=== PATIENT | female | born 1955 | race African-American/Black ===

== ENCOUNTER → 2019-05-18 | Emergency (ER) | payer OTHER, BC | LOC: JER 11:39 ==

== ENCOUNTER 2024-06-23 13:22 | Inpatient (IN) | payer OTHER, BC ==
[2024-06-23] MEDS ORDERED: oxyCODONE HCL 5 MG TABLET ONE (15:09)
[2024-06-23] MEDS: oxyCODONE HCL 5 MG TABLET PO ONE (15:12)
[2024-06-23 15:17] LABS: BASO % 0.5 % (0-2.0); HEMATOCRIT 31.3 % (32.4-45.2); HEMOGLOBIN 9.7 GM/dL (10.7-15.3); LYMPH % 5.3 % (8-40); MCH 21.7 pg (25.7-33.7); MEAN PLT VOLUME 8.2 fl (7.5-11.1); MONO % 6.9 % (3.8-10.2); NEUT % 87.3 % (42.8-82.8); PLATELET COUNT 280 10^3/uL (134-434); RBC 4.47 M/mm3 (3.60-5.2); RDW 22.5 % (11.6-15.6); WHITE BLOOD COUNT 5.8 K/mm3 (4.0-10.0)
[2024-06-23 15:22] LABS: VENOUS BASE EXCESS -5.1 mmol/L (-2-2); VENOUS O2 SATURATION 80.4 % (70-80); VENOUS PCO2 42.2 mmHg (38-52); VENOUS PH 7.311 (7.310-7.410)
[2024-06-23 15:31] LABS: ANISOCYTOSIS 3+; MACROCYTOSIS 0
[2024-06-23 15:38] LABS: POTASSIUM 5.5 mmol/L (3.5-5.1)
[2024-06-23 15:39] LABS: ALBUMIN 3.6 g/dl (3.4-5.0); CALCIUM 8.8 mg/dL (8.5-10.1)
[2024-06-23 15:40] LABS: BLOOD UREA NITROGEN 29.8 mg/dL (7-18); MAGNESIUM 2.8 mg/dL (1.8-2.4)
[2024-06-23 15:43] LABS: CREATININE 1.4 mg/dL (0.55-1.3)
[2024-06-23 15:44] LABS: BILIRUBIN,TOTAL 0.9 mg/dL (0.2-1); TOT PROT 7.3 g/dl (6.4-8.2)
[2024-06-23 16:04] LABS: N-TERMINAL BNP 46336.8 pg/ml (5-125)
[2024-06-23 17:29] LABS: PH,URINE 5.5 (5.0-8.0); URINE APPEARANCE CLEAR; URINE BILIRUBIN NEGATIVE (NEGATIVE); URINE COLOR YELLOW; URINE GLUCOSE (UA) NEGATIVE (NEGATIVE); URINE KETONE NEGATIVE (NEGATIVE); URINE LEUK ESTERASE NEGATIVE (NEGATIVE); URINE NITRITE NEGATIVE (NEGATIVE); URINE PROTEIN TRACE (NEGATIVE); URINE UROBILINOGEN 0.2 mg/dL (0.2-1.0)
[2024-06-24] MEDS ORDERED: ALPRAZolam 0.25 MG TABLET ONE (00:03)
[2024-06-24] MEDS: ALPRAZolam 0.25 MG TABLET PO PRN (00:06)
[2024-06-24] MEDS ORDERED: ALBUTEROL SO4 HFA INHALER IH PRN (01:11)
[2024-06-24] MEDS ORDERED: hydrALAZINE HCL 25 MG TABLET (FP) PO SCH (01:15)
[2024-06-24] MEDS ORDERED: CEFTRIAXONE 1 GM/50 ML BAG ONE (02:41)
[2024-06-24] MEDS: CEFTRIAXONE 1 GM in DEXTROSE 5%-WATER - 50 ML IVPB SCH (02:50)
[2024-06-24] MEDS: AZITHROMYCIN IVPB 500 MG/250 ML BAG IVPB SCH (04:04)
[2024-06-24] MEDS: ACETAMINOPHEN 325 MG TABLET (FP) PO PRN (04:06)
[2024-06-24] MEDS: REMDESIVIR 200 MG in SODIUM CHLORIDE 250 ML IVPB ONE (04:11)
[2024-06-24 04:33] VITALS: BMI 19.7
[2024-06-24] MEDS: hydrALAZINE HCL 25 MG TABLET (FP) PO ONE (04:58)
[2024-06-24] MEDS: HEPARIN NA (PORCINE) 5,000 UNITS/ML 1ML VIAL SQ SCH (06:04)
[2024-06-24] MEDS: INSULIN ASPART SLIDING SCALE (NOVOLOG) 1 VIAL SQ SCH (07:39)
[2024-06-24] MEDS: SODIUM ZIRCONIUM CYCLOSILICATE (LOKELMA) 5 GM PACKET PO SCH (09:58)
[2024-06-24] MEDS: CARVEDILOL 25 MG TABLET (FP) PO SCH (09:58)
[2024-06-24] MEDS: CLOPIDOGREL BISULFATE 75 MG TABLET (FP) PO SCH (09:58)
[2024-06-24] MEDS: CALCITRIOL 0.25 MCG CAPSULE (FP) PO SCH (09:58)
[2024-06-24] MEDS: TACROLIMUS ANHYDROUS 1 MG CAPSULE PO SCH (09:59)
[2024-06-24] MEDS ORDERED: FUROSEMIDE 20 MG TABLET (FP) PO SCH (10:00)
[2024-06-24] MEDS ORDERED: DEXAMETHASONE 4 MG TABLET (FP) PO SCH (10:00)
[2024-06-24] MEDS: INSULIN (LEVEMIR) 100 UNITS/ML UNITS SQ SCH ×2 (10:32→22:35)
[2024-06-24 11:59] LABS: BASO % 0.4 % (0-2.0); EOS % 0.1 % (0-4.5); HEMATOCRIT 27.3 % (32.4-45.2); HEMOGLOBIN 8.4 GM/dL (10.7-15.3); LYMPH % 8.7 % (8-40); MCH 22.1 pg (25.7-33.7); MCHC 30.6 g/dl (32.0-36.0); MEAN CELL VOLUME 72.1 fl (80-96); MONO % 11.1 % (3.8-10.2); NEUT % 79.7 % (42.8-82.8); PLATELET COUNT 225 10^3/uL (134-434); RBC 3.79 M/mm3 (3.60-5.2); RDW 22.7 % (11.6-15.6)
[2024-06-24] MEDS: ISOSORBIDE DINITRATE 10 MG TABLET PO SCH (12:06)
[2024-06-24 12:39] LABS: MAGNESIUM 2.6 mg/dL (1.8-2.4)
[2024-06-24 12:43] LABS: PHOSPHOROUS 4.3 mg/dL (2.5-4.9)
[2024-06-24 12:56] LABS: CHLORIDE 103 mmol/L (98-107); POTASSIUM 5.7 mmol/L (3.5-5.1); SODIUM 133 mmol/L (136-145)
[2024-06-24 13:03] LABS: CALCIUM 7.8 mg/dL (8.5-10.1)
[2024-06-24 13:04] LABS: ALBUMIN 3.2 g/dl (3.4-5.0); ANION GAP 11 mmol/L (4-13); BLOOD UREA NITROGEN 43.7 mg/dL (7-18); CO2 19 mmol/L (21-32)
[2024-06-24 13:06] LABS: CREATININE 1.9 mg/dL (0.55-1.3); TOT PROT 6.6 g/dl (6.4-8.2)
[2024-06-24 13:07] LABS: BILIRUBIN,TOTAL 0.5 mg/dL (0.2-1); SGOT/AST 127 U/L (15-37); SGPT/ALT 72 U/L (13-61)
[2024-06-24 13:12] LABS: ALK PHOS 163 U/L (45-117); GLUCOSE,RANDOM 516 mg/dL (74-106)
[2024-06-24] MEDS: INSULIN (LEVEMIR) 100 UNITS/ML UNITS SQ ONE (14:59)
[2024-06-24] MEDS: INSULIN (NOVOLOG) ASPART 100 UNITS/ML 10ML VIAL SQ SCH (17:29)
[2024-06-24] MEDS ORDERED: DEXTROSE 50%-WATER 25 GM/50 ML DISP.SYRIN ONE (20:01)
[2024-06-24] MEDS: DEXTROSE 50%-WATER - 25 GM/50 ML VIAL IVPUSH ONE (20:13)
[2024-06-24] MEDS: ATORVASTATIN CA 80 MG TABLET (FP) PO SCH (21:57)
[2024-06-24] MEDS: oxyCODONE HCL 5 MG TABLET PO ONE (22:35)
[2024-06-25] MEDS: DEXTROSE 50%-WATER - 25 GM/50 ML VIAL IVPUSH ONE (03:27)
[2024-06-25] MEDS ORDERED: REMDESIVIR 100 MG in SODIUM CHLORIDE 250 ML IVPB SCH (05:00)
[2024-06-25] MEDS: INSULIN (LEVEMIR) 100 UNITS/ML UNITS SQ SCH ×2 (06:16→09:33)
[2024-06-25 06:18] VITALS: RESP 18
[2024-06-25 07:32] LABS: HEMATOCRIT 27.8 % (32.4-45.2); HEMOGLOBIN 8.6 GM/dL (10.7-15.3); MCH 21.7 pg (25.7-33.7); MCHC 30.9 g/dl (32.0-36.0); MEAN CELL VOLUME 70.3 fl (80-96); PLATELET COUNT 240 10^3/uL (134-434); RBC 3.96 M/mm3 (3.60-5.2); RDW 22.2 % (11.6-15.6)
[2024-06-25 07:51] LABS: POTASSIUM 5.2 mmol/L (3.5-5.1)
[2024-06-25 07:53] LABS: CALCIUM 7.7 mg/dL (8.5-10.1)
[2024-06-25 07:54] LABS: BLOOD UREA NITROGEN 46.4 mg/dL (7-18); MAGNESIUM 2.5 mg/dL (1.8-2.4)
[2024-06-25] MEDS ORDERED: INSULIN (LEVEMIR) 100 UNITS/ML UNITS SQ SCH (07:55)
[2024-06-25 07:57] LABS: CREATININE 1.6 mg/dL (0.55-1.3); PHOSPHOROUS 4.8 mg/dL (2.5-4.9)
[2024-06-25 07:58] LABS: BILIRUBIN,TOTAL 0.5 mg/dL (0.2-1); TOT PROT 6.3 g/dl (6.4-8.2)
[2024-06-25] MEDS ORDERED: CEFTRIAXONE 2 GM in DEXTROSE 5%-WATER 100 ML IVPB SCH (10:00)
[2024-06-25] MEDS: SODIUM ZIRCONIUM CYCLOSILICATE (LOKELMA) 5 GM PACKET PO SCH (10:25)
[2024-06-25] MEDS: cloNIDine-TTS 0.2 MG/24 HOURS PATCH.TDWK TD SCH (10:26)
[2024-06-25] MEDS: REMDESIVIR 100 MG in SODIUM CHLORIDE 250 ML IVPB SCH (10:26)
[2024-06-25] MEDS: ERTAPENEM SODIUM 0.5 GM in SODIUM CHLORIDE 50 ML IVPB SCH (11:59)
[2024-06-25] MEDS: oxyCODONE HCL 5 MG TABLET PO ONE (12:11)
[2024-06-25 20:51] VITALS: PULSE 75
[2024-06-25 20:52] VITALS: BP 156/76
[2024-06-25 22:43] VITALS: TEMP 98.3
== END 2024-06-25 22:43 | disposition short-term general hospital (02) | DRG 177 ==
LOC: JER 13:22 → JERBED 16:29 → J4S 06-24 02:51
PROVIDERS: ADMIT Internal Medicine; ATTEND Internal Medicine
PROC: XW033E5 Introduction of Remdesivir Anti-infective into Peripheral Vein, Percutaneous Approach, New Technology Group 5 (ICD-10-PCS; principal; 2024-06-23)
DX: U07.1 COVID-19 (principal); I50.21 Acute systolic (congestive) heart failure; J18.9 Pneumonia, unspecified organism; I13.2 Hypertensive heart and chronic kidney disease with heart failure and with stage 5 chronic kidney disease, or end stage renal disease; Z94.0 Kidney transplant status; T86.19 Other complication of kidney transplant; I70.1 Atherosclerosis of renal artery; N18.9 Chronic kidney disease, unspecified; Y83.9 Surgical procedure, unspecified as the cause of abnormal reaction of the patient, or of later complication, without mention of misadventure at the time of the procedure; I25.10 Atherosclerotic heart disease of native coronary artery without angina pectoris; Z95.5 Presence of coronary angioplasty implant and graft
CPT/HCPCS: 0241U-QW; 36415; 71045-TC-FY; 76705-TC; 80053; 81003; 82010; 82607; 82803; 82962; 83735; 83880; 84100; 84132; 84207; 84252; 84436; 84443; 84484; 85025; 85027; 87086; 87186; 93005; 93010; 93971-TC; 99285-25; J0248; J1644

== ENCOUNTER 2024-07-29 12:07 | Inpatient (IN) | payer OTHER, BC ==
[2024-07-29] MEDS ORDERED: FUROSEMIDE 40 MG/4 ML INJECTABLE VIAL ONE (13:50)
[2024-07-29] MEDS ORDERED: ALPRAZolam 0.25 MG TABLET ONE (14:03)
[2024-07-29] MEDS: ALPRAZolam 1 MG TABLET PO STA (14:28)
[2024-07-29] MEDS: FUROSEMIDE 40 MG/4 ML INJECTABLE VIAL IVPUSH ONE (14:28)
[2024-07-29] MEDS: ACETAMINOPHEN 1000 MG/100 ML BAG IVPB ONE (14:30)
[2024-07-29] MEDS ORDERED: ACETAMINOPHEN INJECTION 100 ML ONE (14:44)
[2024-07-29 14:45] LABS: HEMATOCRIT 34.3 % (32.4-45.2); HEMOGLOBIN 10.6 GM/dL (10.7-15.3); MCH 24.2 pg (25.7-33.7); MEAN PLT VOLUME 8.1 fl (7.5-11.1); PLATELET COUNT 215 10^3/uL (134-434); RBC 4.41 M/mm3 (3.60-5.2); RDW 24.9 % (11.6-15.6); WHITE BLOOD COUNT 3.8 K/mm3 (4.0-10.0)
[2024-07-29 15:02] LABS: POTASSIUM 4.6 mmol/L (3.5-5.1)
[2024-07-29 15:04] LABS: CALCIUM 7.7 mg/dL (8.5-10.1)
[2024-07-29 15:05] LABS: ALBUMIN 3.1 g/dl (3.4-5.0); BLOOD UREA NITROGEN 53.1 mg/dL (7-18); MAGNESIUM 1.9 mg/dL (1.8-2.4)
[2024-07-29 15:08] LABS: CREATININE 2.2 mg/dL (0.55-1.3); INR 1.04 (0.83-1.09); PHOSPHOROUS 3.1 mg/dL (2.5-4.9); PROTHROMBIN TIME (PATIENT) 11.7 SEC (9.7-13.0)
[2024-07-29 15:09] LABS: BILIRUBIN,TOTAL 0.6 mg/dL (0.2-1)
[2024-07-29 15:10] LABS: TOT PROT 6.2 g/dl (6.4-8.2)
[2024-07-29 15:11] LABS: ACTIVATED PTT 28.3 SECONDS (25.2-36.5)
[2024-07-29 15:32] LABS: N-TERMINAL BNP 41544.2 pg/ml (5-125)
[2024-07-29] MEDS ORDERED: oxyCODONE HCL 5 MG TABLET ONE (16:54)
[2024-07-29] MEDS: oxyCODONE HCL 5 MG TABLET PO ONE (16:59)
[2024-07-29 17:06] LABS: POTASSIUM 3.6 mmol/L (3.5-5.1)
[2024-07-29 17:07] LABS: CALCIUM 7.6 mg/dL (8.5-10.1)
[2024-07-29 17:08] LABS: BLOOD UREA NITROGEN 53.7 mg/dL (7-18)
[2024-07-29 17:11] LABS: CREATININE 2.2 mg/dL (0.55-1.3)
[2024-07-29] MEDS ORDERED: ALBUTEROL SO4 HFA INHALER IH PRN (18:40)
[2024-07-29] MEDS ORDERED: TACROLIMUS ANHYDROUS 1 MG CAPSULE PO SCH (22:00)
[2024-07-29] MEDS: INSULIN ASPART SLIDING SCALE (NOVOLOG) 1 VIAL SQ SCH (22:00)
[2024-07-29] MEDS: ATORVASTATIN CA 80 MG TABLET (FP) PO SCH (22:17)
[2024-07-29] MEDS: CARVEDILOL 25 MG TABLET (FP) PO SCH (22:17)
[2024-07-29] MEDS: TACROLIMUS ANHYDROUS 2 MG, TACROLIMUS ANHYDROUS 0.5 MG PO SCH (22:17)
[2024-07-29] MEDS: SENNOSIDES 8.6MG TABLET (FP) PO SCH (22:17)
[2024-07-29] MEDS: hydrALAZINE HCL 50 MG TABLET (FP) PO SCH (22:17)
[2024-07-29] MEDS: INSULIN (LEVEMIR) 100 UNITS/ML UNITS SQ SCH (22:18)
[2024-07-29] MEDS: ALPRAZolam 0.25 MG TABLET PO PRN (22:18)
[2024-07-29] MEDS: HEPARIN NA (PORCINE) 5,000 UNITS/ML 1ML VIAL SQ SCH (22:20)
[2024-07-29] MEDS: MYCOPHENOLATE MOFETIL 500 MG TABLET PO SCH (22:48)
[2024-07-30 07:50] LABS: BASO % 0.6 % (0-2.0); EOS % 0.4 % (0-4.5); HEMATOCRIT 32.9 % (32.4-45.2); HEMOGLOBIN 10.3 GM/dL (10.7-15.3); LYMPH % 18.3 % (8-40); MCH 24.3 pg (25.7-33.7); MCHC 31.2 g/dl (32.0-36.0); MEAN CELL VOLUME 77.9 fl (80-96); MEAN PLT VOLUME 7.2 fl (7.5-11.1); MONO % 10.7 % (3.8-10.2); PLATELET COUNT 199 10^3/uL (134-434); RBC 4.23 M/mm3 (3.60-5.2); RDW 24.6 % (11.6-15.6); WHITE BLOOD COUNT 3.2 K/mm3 (4.0-10.0)
[2024-07-30 08:09] LABS: POTASSIUM 3.4 mmol/L (3.5-5.1)
[2024-07-30 08:15] LABS: BLOOD UREA NITROGEN 53.4 mg/dL (7-18); CALCIUM 7.6 mg/dL (8.5-10.1)
[2024-07-30 08:19] LABS: CREATININE 2.1 mg/dL (0.55-1.3)
[2024-07-30] MEDS: predniSONE 5 MG TABLET (UD) PO SCH (10:20)
[2024-07-30] MEDS: CLOPIDOGREL BISULFATE 75 MG TABLET (FP) PO SCH (10:21)
[2024-07-30] MEDS: CALCITRIOL 0.25 MCG CAPSULE (FP) PO SCH (10:21)
[2024-07-30] MEDS: PANTOPRAZOLE 40 MG TABLET PO SCH (10:21)
[2024-07-30] MEDS: NIFEdipine E.R. 30 MG TABLET PO SCH (10:21)
[2024-07-30] MEDS: ASPIRIN COATED 81 MG TABLET.EC PO SCH (10:21)
[2024-07-30] MEDS: POLYETHYLENE GLYCOL (HEALTHYLAX) 3350 17 GM PACKET PO SCH (10:27)
[2024-07-30] MEDS: FUROSEMIDE 40 MG/4 ML INJECTABLE VIAL IVPUSH SCH (10:27)
[2024-07-30] MEDS: ISOSORBIDE DINITRATE 20 MG TABLET PO SCH (10:29)
[2024-07-30] MEDS: cloNIDine-TTS 0.2 MG/24 HOURS PATCH.TDWK TD SCH (10:30)
[2024-07-30] MEDS: oxyCODONE HCL 5 MG TABLET PO ONE (10:41)
[2024-07-30] MEDS: POTASSIUM CHLORIDE ORAL LIQUID 20 MEQ/15 ML PO ONE (11:12)
[2024-07-30] MEDS: POTASSIUM CHLORIDE TABS 20 MEQ TABLET.ER (FP) PO SCH (12:13)
[2024-07-30] MEDS ORDERED: POTASSIUM CHLORIDE ORAL LIQUID 20 MEQ/15 ML PO ONE (18:00)
[2024-07-31] MEDS: ALPRAZolam 0.25 MG TABLET PO ONE (03:54)
[2024-07-31 07:32] LABS: BASO % 0.5 % (0-2.0); EOS % 0.4 % (0-4.5); HEMATOCRIT 31.2 % (32.4-45.2); HEMOGLOBIN 9.7 GM/dL (10.7-15.3); LYMPH % 17.7 % (8-40); MCH 24.4 pg (25.7-33.7); MCHC 31.2 g/dl (32.0-36.0); MEAN CELL VOLUME 78.4 fl (80-96); MEAN PLT VOLUME 7.4 fl (7.5-11.1); MONO % 10.4 % (3.8-10.2); PLATELET COUNT 222 10^3/uL (134-434); RBC 3.98 M/mm3 (3.60-5.2); RDW 24.4 % (11.6-15.6); WHITE BLOOD COUNT 3.3 K/mm3 (4.0-10.0)
[2024-07-31 08:00] LABS: POTASSIUM 4.1 mmol/L (3.5-5.1)
[2024-07-31 08:09] LABS: ALBUMIN 2.8 g/dl (3.4-5.0); BLOOD UREA NITROGEN 58.7 mg/dL (7-18); CALCIUM 7.7 mg/dL (8.5-10.1)
[2024-07-31 08:10] LABS: MAGNESIUM 1.8 mg/dL (1.8-2.4)
[2024-07-31 08:12] LABS: CREATININE 2.2 mg/dL (0.55-1.3)
[2024-07-31 08:13] LABS: PHOSPHOROUS 3.7 mg/dL (2.5-4.9)
[2024-07-31 08:14] LABS: BILIRUBIN,TOTAL 0.8 mg/dL (0.2-1); TOT PROT 5.5 g/dl (6.4-8.2)
[2024-07-31] MEDS: oxyCODONE HCL 5 MG TABLET PO PRN (10:47)
[2024-07-31] MEDS: ACETAMINOPHEN 325 MG TABLET (FP) PO PRN (10:48)
[2024-07-31] MEDS: FUROSEMIDE 40 MG/4 ML INJECTABLE VIAL IVPUSH SCH (14:18)
[2024-08-01] MEDS: INSULIN (LEVEMIR) 100 UNITS/ML UNITS SQ SCH (10:30)
[2024-08-01 11:49] LABS: BASO % 0.6 % (0-2.0); EOS % 1.1 % (0-4.5); HEMATOCRIT 30.8 % (32.4-45.2); HEMOGLOBIN 9.6 GM/dL (10.7-15.3); LYMPH % 14.8 % (8-40); MCH 24.3 pg (25.7-33.7); MCHC 31.2 g/dl (32.0-36.0); MEAN CELL VOLUME 77.8 fl (80-96); MEAN PLT VOLUME 7.1 fl (7.5-11.1); NEUT % 71.5 % (42.8-82.8); PLATELET COUNT 220 10^3/uL (134-434); RBC 3.96 M/mm3 (3.60-5.2); RDW 24.6 % (11.6-15.6); WHITE BLOOD COUNT 2.9 K/mm3 (4.0-10.0)
[2024-08-01 12:04] LABS: POTASSIUM 3.7 mmol/L (3.5-5.1)
[2024-08-01 12:06] LABS: CALCIUM 7.9 mg/dL (8.5-10.1)
[2024-08-01 12:07] LABS: BLOOD UREA NITROGEN 53.6 mg/dL (7-18); MAGNESIUM 1.7 mg/dL (1.8-2.4)
[2024-08-01 12:10] LABS: CREATININE 1.9 mg/dL (0.55-1.3); PHOSPHOROUS 3.6 mg/dL (2.5-4.9)
[2024-08-01 12:11] LABS: BILIRUBIN,TOTAL 0.3 mg/dL (0.2-1); TOT PROT 5.8 g/dl (6.4-8.2)
[2024-08-01] MEDS: PROCHLORPERAZINE INJECTION 10 MG/2 ML VIAL IVPB PRN (14:14)
[2024-08-01 23:57] VITALS: BMI 25.3
[2024-08-02] MEDS ORDERED: hydrALAZINE HCL 25 MG TABLET (FP) PO SCH (06:11)
[2024-08-02 06:34] VITALS: TEMP 97.9
[2024-08-02] MEDS: ASCORBIC ACID 500 MG TABLET (FP) PO SCH (09:55)
[2024-08-02] MEDS: MULTIVITAMINS THER W-MINERALS COMBO TABLET (FP) PO SCH (09:55)
[2024-08-02] MEDS: ALPRAZolam 0.25 MG TABLET PO PRN (10:15)
[2024-08-02] MEDS ORDERED: FUROSEMIDE 40 MG TABLET (FP) PO SCH (11:30)
[2024-08-02] MEDS: FUROSEMIDE 40 MG TABLET (FP) PO SCH (11:42)
[2024-08-02 11:59] VITALS: BP 121/78; PULSE 75; RESP 20
== END 2024-08-02 12:30 | disposition home or self-care (01) | DRG 291 ==
LOC: JER 12:07 → JERBED 18:39 → J4W 19:53
PROVIDERS: ADMIT Internal Medicine; ATTEND Internal Medicine
DX: I13.0 Hypertensive heart and chronic kidney disease with heart failure and stage 1 through stage 4 chronic kidney disease, or unspecified chronic kidney disease (principal); I50.23 Acute on chronic systolic (congestive) heart failure; Z94.0 Kidney transplant status; I24.89 Other forms of acute ischemic heart disease; J44.9 Chronic obstructive pulmonary disease, unspecified; I70.1 Atherosclerosis of renal artery; N18.9 Chronic kidney disease, unspecified; I25.10 Atherosclerotic heart disease of native coronary artery without angina pectoris; Z95.5 Presence of coronary angioplasty implant and graft; E11.22 Type 2 diabetes mellitus with diabetic chronic kidney disease; E87.70 Fluid overload, unspecified
CPT/HCPCS: 36415; 71045-TC-FY; 76775-TC; 76776-TC; 80048; 80053; 80061; 82550; 82962; 83735; 83880; 84100; 84484; 85025; 85610; 85730; 93005; 93010; 93970-TC; 94761; 97116-GP; 97161-GP; 99285-25; J0131; J1644; J7517

== ENCOUNTER 2025-01-01 16:10 | Inpatient (IN) | payer OTHER, BC ==
[2025-01-01] MEDS: SODIUM CHLORIDE 0.9% 500 ML INFUS.BAG IV ONE ×2 (17:10→18:30)
[2025-01-01 17:31] LABS: HEMATOCRIT 33.4 % (32.4-45.2); HEMOGLOBIN 11.1 G/dL (10.7-15.3); MCHC 33.2 g/dl (32.0-36.0); MEAN CELL VOLUME 81.3 fl (80-96); MEAN PLT VOLUME 9.6 fl (7.5-11.1); PLATELET COUNT 210.8 10^3/uL (134-434); RBC 4.11 10^6/uL (3.60-5.2); RDW 16.2 % (11.6-15.6); WHITE BLOOD COUNT 7.7 10^3/uL (4.0-10.8)
[2025-01-01 17:39] LABS: BILIRUBIN,TOTAL 0.8 mg/dl (0.2-1); CALCIUM 9.1 mg/dl (8.5-10.1); MAGNESIUM 2.9 mg/dL (1.8-2.4); POTASSIUM 4.3 mmol/L (3.5-5.1)
[2025-01-01 17:49] LABS: PLATELET ESTIMATE ADEQUATE
[2025-01-01] MEDS ORDERED: ACETAMINOPHEN INJECTION 100 ML ONE (18:33)
[2025-01-01] MEDS: ACETAMINOPHEN 1000 MG/100 ML BAG IVPB ONE (18:35)
[2025-01-01 19:47] LABS: VENOUS BASE EXCESS -2.2 mmol/L (-2-2); VENOUS O2 SATURATION 74.8 % (70-80); VENOUS PCO2 41.8 mmHg (38-52); VENOUS PH 7.361 (7.310-7.410)
[2025-01-01 20:00] LABS: CALCIUM 8.2 mg/dl (8.5-10.1); CREATININE 3.5 mg/dl (0.6-1.3); POTASSIUM 3.8 mmol/L (3.5-5.1)
[2025-01-01] MEDS ORDERED: INSULIN REGULAR HUMAN 100 UNITS/ML *VIAL ONE ×2 (20:15→22:07)
[2025-01-01] MEDS: INSULIN REGULAR HUMAN 100 UNITS/ML *VIAL IVPUSH ONE ×2 (20:22→22:08)
[2025-01-02] MEDS ORDERED: ACETAMINOPHEN 325 MG TABLET (FP) PO PRN ×2 (00:06→07:29)
[2025-01-02] MEDS ORDERED: DOCUSATE SODIUM 100 MG CAPSULE (FP) PO PRN (00:06)
[2025-01-02] MEDS ORDERED: ALBUTEROL SO4 HFA INHALER IH PRN (00:35)
[2025-01-02] MEDS: diphenhydrAMINE HCL 25 MG CAPSULE (FP) PO ONE (02:08)
[2025-01-02 02:26] LABS: EPI CELLS 7 /uL (0-25.1); HYALINE CASTS 0 /uL (0-3.1); PH,URINE 5.5 (5.0-8.0); URINE APPEARANCE CLEAR; URINE BACTERIA 35 /uL (0-1359); URINE BILIRUBIN NEGATIVE (NEGATIVE); URINE COLOR YELLOW; URINE GLUCOSE (UA) 3+ (NEGATIVE); URINE KETONE NEGATIVE (NEGATIVE); URINE LEUK ESTERASE 1+ (NEGATIVE); URINE NITRITE NEGATIVE (NEGATIVE); URINE PROTEIN NEGATIVE (NEGATIVE); URINE RBC 6 /uL (0-23.9); URINE UROBILINOGEN 0.2 mg/dL (0.2-1.0); URINE WBC 56 /uL (0-25.8)
[2025-01-02] MEDS: INSULIN ASPART SLIDING SCALE (NOVOLOG) 1 VIAL SQ SCH ×2 (03:11→14:25)
[2025-01-02 07:33] LABS: INR 0.89 (0.83-1.09); PROTHROMBIN TIME (PATIENT) 10.2 SEC (9.7-13.0)
[2025-01-02 07:36] LABS: ACTIVATED PTT 23.1 SECONDS (25.2-36.5)
[2025-01-02 07:42] LABS: CALCIUM 8.6 mg/dl (8.5-10.1); CREATININE 3.3 mg/dl (0.6-1.3); MAGNESIUM 2.6 mg/dL (1.8-2.4); PHOSPHOROUS 3.9 (2.5-4.9); POTASSIUM 3.7 mmol/L (3.5-5.1)
[2025-01-02] MEDS ORDERED: ISOSORBIDE DINITRATE 20 MG TABLET PO SCH (08:00)
[2025-01-02] MEDS: hydrALAZINE HCL 50 MG TABLET (FP) PO SCH (08:40)
[2025-01-02] MEDS: ISOSORBIDE DINITRATE 20 MG TABLET PO SCH (08:41)
[2025-01-02 09:28] LABS: BASO % 0.1 % (0-2.0); HEMATOCRIT 33.1 % (32.4-45.2); HEMOGLOBIN 10.6 GM/dL (10.7-15.3); LYMPH % 10.1 % (8-40); MCH 25.9 pg (25.7-33.7); MCHC 32.1 g/dl (32.0-36.0); MEAN CELL VOLUME 80.5 fl (80-96); MEAN PLT VOLUME 8.5 fl (7.5-11.1); MONO % 7.8 % (3.8-10.2); PLATELET COUNT 202 10^3/uL (134-434); RBC 4.12 M/mm3 (3.60-5.2); RDW 15.6 % (11.6-15.6); WHITE BLOOD COUNT 8.9 K/mm3 (4.0-10.0)
[2025-01-02] MEDS: CARVEDILOL 25 MG TABLET (FP) PO SCH (09:40)
[2025-01-02] MEDS: TACROLIMUS ANHYDROUS 1 MG CAPSULE PO SCH (09:40)
[2025-01-02] MEDS: ASPIRIN COATED 81 MG TABLET.EC PO SCH (09:40)
[2025-01-02] MEDS: PANTOPRAZOLE 40 MG TABLET PO SCH (09:40)
[2025-01-02] MEDS: CLOPIDOGREL BISULFATE 75 MG TABLET (FP) PO SCH (09:40)
[2025-01-02] MEDS: ESCITALOPRAM OXALATE 10 MG TABLET PO SCH (09:40)
[2025-01-02] MEDS: predniSONE 5 MG TABLET (UD) PO SCH (09:40)
[2025-01-02] MEDS: CALCITRIOL 0.25 MCG CAPSULE (FP) PO SCH (09:40)
[2025-01-02] MEDS: SENNOSIDES 8.6MG TABLET (FP) PO SCH (09:40)
[2025-01-02] MEDS ORDERED: hydrALAZINE HCL 50 MG TABLET (FP) PO SCH (10:00)
[2025-01-02] MEDS ORDERED: PANTOPRAZOLE SOD 40 MG SUSPENSION PACKET PO SCH (10:00)
[2025-01-02] MEDS: CARVEDILOL 6.25 MG TABLET (FP) PO SCH (10:28)
[2025-01-02] MEDS: LACTATED RINGERS SOLUTION 1,000 ML/1,000 ML INFUS.BAG IV SCH (10:46)
[2025-01-02] MEDS: MYCOPHENOLATE MOFETIL 250 MG CAPSULE PO SCH (10:47)
[2025-01-02] MEDS ORDERED: ALPRAZolam 0.25 MG TABLET PO PRN (12:24)
[2025-01-02] MEDS: TRIMETHOBENZAMIDE HCL 200MG/2ML INJ IM PRN (16:47)
[2025-01-02] MEDS: oxyCODONE HCL 5 MG TABLET PO PRN (16:47)
[2025-01-02] MEDS: ATORVASTATIN CA 80 MG TABLET (FP) PO SCH (21:14)
[2025-01-03] MEDS: LEVALBUTEROL HCL 0.31 MG/3 ML VIAL.NEB IH SCH (09:11)
[2025-01-03] MEDS: IPRATROPIUM BR 0.02% 0.5 MG/2.5 ML VIAL.NEB. NEB SCH (09:11)
[2025-01-03 09:22] LABS: CALCIUM 8.3 mg/dl (8.5-10.1); CREATININE 2.4 mg/dl (0.6-1.3); MAGNESIUM 2.4 mg/dL (1.8-2.4); PHOSPHOROUS 2.9 (2.5-4.9); POTASSIUM 3.7 mmol/L (3.5-5.1)
[2025-01-03 11:39] LABS: BASO % 0.2 % (0-2.0); EOS % 0.1 % (0-4.5); HEMATOCRIT 34.1 % (32.4-45.2); LYMPH % 14.5 % (8-40); MCH 26.2 pg (25.7-33.7); MCHC 32.3 g/dl (32.0-36.0); MEAN CELL VOLUME 81.2 fl (80-96); MEAN PLT VOLUME 8.2 fl (7.5-11.1); MONO % 6.5 % (3.8-10.2); NEUT % 78.7 % (42.8-82.8); PLATELET COUNT 174 10^3/uL (134-434); RDW 15.8 % (11.6-15.6); WHITE BLOOD COUNT 10.1 K/mm3 (4.0-10.0)
[2025-01-03] MEDS: LACTATED RINGERS SOLUTION 1,000 ML/1,000 ML INFUS.BAG IV SCH (15:57)
[2025-01-04] MEDS: INSULIN (LEVEMIR) 100 UNITS/ML UNITS SQ SCH (10:30)
[2025-01-04] MEDS: LIDOCAINE 5% TOPICAL PATCH TP SCH (10:31)
[2025-01-04 10:57] LABS: CALCIUM 8.9 mg/dl (8.5-10.1); CREATININE 2.4 mg/dl (0.6-1.3); MAGNESIUM 2.3 mg/dL (1.8-2.4); PHOSPHOROUS 3.5 (2.5-4.9); POTASSIUM 4.2 mmol/L (3.5-5.1)
[2025-01-04] MEDS: ACETAMINOPHEN 1000 MG/100 ML BAG IVPB PRN (11:42)
[2025-01-04] MEDS: INSULIN ASPART SLIDING SCALE (NOVOLOG) 1 VIAL SQ SCH (12:36)
[2025-01-04 12:46] LABS: BASO % 0.2 % (0-2.0); EOS % 0.4 % (0-4.5); HEMATOCRIT 34.3 % (32.4-45.2); LYMPH % 16.9 % (8-40); MCH 26.5 pg (25.7-33.7); MCHC 31.9 g/dl (32.0-36.0); MEAN PLT VOLUME 8.5 fl (7.5-11.1); MONO % 5.9 % (3.8-10.2); NEUT % 76.6 % (42.8-82.8); PLATELET COUNT 173 10^3/uL (134-434); RBC 4.14 M/mm3 (3.60-5.2); RDW 16.2 % (11.6-15.6); WHITE BLOOD COUNT 8.5 K/mm3 (4.0-10.0)
[2025-01-04] MEDS: LORazepam 2 MG/ML SDV VIAL IVPUSH ONE (13:35)
[2025-01-04] MEDS: LACTATED RINGERS SOLUTION 1,000 ML/1,000 ML INFUS.BAG IV SCH (13:35)
[2025-01-04] MEDS: ONDANSETRON 4 MG/2 ML VIAL IVPUSH ONE (13:35)
[2025-01-04] MEDS: FAMOTIDINE 20 MG/50 ML IVPB 20 MG/50 ML MG IVPB ONE (16:10)
[2025-01-04] MEDS ORDERED: ONDANSETRON 4 MG/2 ML VIAL IVPUSH PRN (17:35)
[2025-01-04] MEDS: LIDOCAINE PATCH REMOVAL MC SCH (21:46)
[2025-01-05 08:17] LABS: CALCIUM 8.9 mg/dl (8.5-10.1); CREATININE 2.2 mg/dl (0.6-1.3); MAGNESIUM 2.4 mg/dL (1.8-2.4); PHOSPHOROUS 3.9 (2.5-4.9); POTASSIUM 4.3 mmol/L (3.5-5.1)
[2025-01-05 09:05] LABS: BASO % 0.2 % (0-2.0); EOS % 0.1 % (0-4.5); HEMATOCRIT 35.4 % (32.4-45.2); LYMPH % 10.6 % (8-40); MCH 25.9 pg (25.7-33.7); MCHC 31.2 g/dl (32.0-36.0); MEAN CELL VOLUME 83.2 fl (80-96); MEAN PLT VOLUME 8.1 fl (7.5-11.1); MONO % 3.7 % (3.8-10.2); NEUT % 85.4 % (42.8-82.8); PLATELET COUNT 155 10^3/uL (134-434); RBC 4.26 M/mm3 (3.60-5.2); RDW 16.2 % (11.6-15.6); WHITE BLOOD COUNT 7.9 K/mm3 (4.0-10.0)
[2025-01-05] MEDS: methylPREDNISolone NA SUCC 40 MG/1 ML VIAL IVPUSH ONE (09:58)
[2025-01-05] MEDS: MYCOPHENOLATE MOFETIL 500 MG TABLET PO SCH (09:58)
[2025-01-05 15:07] VITALS: BMI 17.3
[2025-01-05] MEDS: INSULIN (NOVOLOG) ASPART 100 UNITS/ML 10ML VIAL SQ ONE (15:28)
[2025-01-05 19:09] LABS: GLUCOSE,RANDOM 701 mg/dl (74-106)
[2025-01-05 19:17] VITALS: RESP 16
[2025-01-05 19:33] LABS: ANION GAP 15 mmol/L (4-13); CALCIUM 7.9 mg/dl (8.5-10.1); CHLORIDE 96 mmol/L (98-107); CO2 21 mmol/L (21-32); CREATININE 2.5 mg/dl (0.6-1.3); POTASSIUM 3.7 mmol/L (3.5-5.1); SODIUM 132 mmol/L (136-145)
[2025-01-05] MEDS: traMADol HCL 50 MG TABLET PO PRN (21:36)
[2025-01-05] MEDS: INSULIN (LEVEMIR) 100 UNITS/ML UNITS SQ ONE (22:41)
[2025-01-06 08:01] LABS: CALCIUM 8.5 mg/dl (8.5-10.1); CREATININE 2.3 mg/dl (0.6-1.3); MAGNESIUM 2.3 mg/dL (1.8-2.4); PHOSPHOROUS 3.2 (2.5-4.9); POTASSIUM 3.6 mmol/L (3.5-5.1)
[2025-01-06] MEDS: predniSONE 5 MG TABLET (UD) PO SCH (10:32)
[2025-01-06 10:35] LABS: BASO % 0.2 % (0-2.0); EOS % 0.9 % (0-4.5); HEMATOCRIT 31.9 % (32.4-45.2); LYMPH % 19.8 % (8-40); MCH 25.8 pg (25.7-33.7); MCHC 31.4 g/dl (32.0-36.0); MEAN CELL VOLUME 82.3 fl (80-96); MEAN PLT VOLUME 8.4 fl (7.5-11.1); MONO % 6.8 % (3.8-10.2); NEUT % 72.3 % (42.8-82.8); PLATELET COUNT 155 10^3/uL (134-434); RBC 3.88 M/mm3 (3.60-5.2); RDW 15.9 % (11.6-15.6); WHITE BLOOD COUNT 7.1 K/mm3 (4.0-10.0)
[2025-01-06 11:34] VITALS: BP 130/68; PULSE 60; TEMP 98
[2025-01-07] MEDS ORDERED: cloNIDine-TTS 0.3 MG /24 HRS PATCH.TDWK TD SCH ×2 (00:45→08:00)
== END 2025-01-06 12:16 | disposition home or self-care (01) | DRG 682 ==
LOC: FER 16:10 → FM/S 23:40 → OBSVTOIN 23:43
PROVIDERS: ADMIT Student in an Organized Health Care Education/Training Program
DX: N17.9 Acute kidney failure, unspecified (principal); E43 Unspecified severe protein-calorie malnutrition; E87.1 Hypo-osmolality and hyponatremia; I13.0 Hypertensive heart and chronic kidney disease with heart failure and stage 1 through stage 4 chronic kidney disease, or unspecified chronic kidney disease; Z94.0 Kidney transplant status; Z68.1 Body mass index [BMI] 19.9 or less, adult; I50.42 Chronic combined systolic (congestive) and diastolic (congestive) heart failure; E11.65 Type 2 diabetes mellitus with hyperglycemia; I25.10 Atherosclerotic heart disease of native coronary artery without angina pectoris; N18.9 Chronic kidney disease, unspecified
CPT/HCPCS: 36415; 71045-TC-FY; 74176-TC; 76776-TC; 80048; 80053; 80197; 81003; 82010; 82803; 82962; 83036; 83735; 84100; 85025; 85610; 85730; 87045; 87046; 87798; 93005; 94640; 97116-GP; 97161-GP; 99285-25; G0378; J0131; J7517

== ENCOUNTER 2025-03-01 08:47 | Observation (INO) | payer OTHER, BC ==
[2025-03-01] MEDS ORDERED: FAMOTIDINE 20 MG/50 ML IVPB 20 MG/50 ML MG IVPB ONE (09:29)
[2025-03-01] MEDS ORDERED: ACETAMINOPHEN INJECTION 100 ML ONE (09:29)
[2025-03-01] MEDS ORDERED: MAG HYDROX/AL HYDROX/SIMETH 30 ML UNIT-DOSE CUP ONE (09:31)
[2025-03-01] MEDS: FAMOTIDINE 20 MG/50 ML IVPB 20 MG/50 ML MG IVPB ONE (10:14)
[2025-03-01] MEDS: MAG HYDROX/AL HYDROX/SIMETH 30 ML UNIT-DOSE CUP PO ONE (10:14)
[2025-03-01] MEDS: ACETAMINOPHEN 1000 MG/100 ML BAG IVPB ONE (10:14)
[2025-03-01 10:36] LABS: HEMATOCRIT 37.8 % (34.1-44.9); HEMOGLOBIN 10.6 g/dL (11.2-15.7); MEAN CELL VOLUME 88.7 fl (79.4-94.8); MEAN PLT VOLUME 10.8 fl (9.4-12.3); PLATELET COUNT 161 x10^3/uL (182-369); RDW 21.2 % (12.4-16.6)
[2025-03-01 10:47] LABS: ACTIVATED PTT 29.1 SECONDS (25.2-36.5)
[2025-03-01 10:55] LABS: INR 1.05 (0.83-1.09); PROTHROMBIN TIME (PATIENT) 11.4 SEC (9.7-13.0)
[2025-03-01 10:56] LABS: CHLORIDE 103 mmol/L (98-107); SODIUM 120 mmol/L (136-145)
[2025-03-01 10:58] LABS: ALBUMIN 3.2 g/dl (3.4-5.0); BLOOD UREA NITROGEN 28.6 mg/dL (7-18); CALCIUM 7.9 mg/dL (8.5-10.1); CO2 26 mmol/L (21-32); GLUCOSE,RANDOM 80 mg/dL (74-106); MAGNESIUM 2.7 mg/dL (1.8-2.4)
[2025-03-01 11:02] LABS: CREATININE 1.6 mg/dL (0.55-1.3)
[2025-03-01] MEDS ORDERED: hydrOXYzine PAMOATE 25 MG CAPSULE (FP) PO ONE (12:14)
[2025-03-01] MEDS: hydrOXYzine PAMOATE 25 MG CAPSULE (FP) PO ONE (12:16)
[2025-03-01 12:32] LABS: ANION GAP -9 mmol/L (4-13); POTASSIUM > 10.0 mmol/L (3.5-5.1)
[2025-03-01] MEDS: SODIUM CHLORIDE 1,000 ML IV SCH (12:59)
[2025-03-01 13:33] LABS: POTASSIUM 4.1 mmol/L (3.5-5.1)
[2025-03-01 13:35] LABS: BLOOD UREA NITROGEN 27.7 mg/dL (7-18); CALCIUM 8.8 mg/dL (8.5-10.1)
[2025-03-01 13:39] LABS: CREATININE 1.6 mg/dL (0.55-1.3)
[2025-03-01 13:40] LABS: BILIRUBIN,TOTAL 0.8 mg/dL (0.2-1); TOT PROT 7.1 g/dl (6.4-8.2)
[2025-03-01 13:48] LABS: ALBUMIN 3.9 g/dl (3.4-5.0)
[2025-03-01] MEDS ORDERED: MORPHINE SULFATE 2 MG/ML SYRINGE ONE (14:22)
[2025-03-01] MEDS: morphine CARPU-JECT 2 MG/1 ML DISP.SYRIN IVPUSH ONE (14:30)
[2025-03-01] MEDS ORDERED: ALBUTEROL SO4 HFA INHALER IH PRN (15:58)
[2025-03-01 16:16] VITALS: BMI 20.9
[2025-03-01] MEDS: LIDOCAINE 5% TOPICAL PATCH TP SCH (18:29)
[2025-03-01] MEDS: ISOSORBIDE DINITRATE 20 MG TABLET PO SCH (20:07)
[2025-03-01] MEDS: hydrALAZINE HCL 50 MG TABLET (FP) PO SCH (21:39)
[2025-03-01] MEDS: CARVEDILOL 12.5 MG TABLET (FP) PO SCH (21:41)
[2025-03-01] MEDS: ATORVASTATIN CA 80 MG TABLET (FP) PO SCH (21:41)
[2025-03-01] MEDS: FUROSEMIDE 40 MG TABLET (FP) PO SCH (21:41)
[2025-03-01] MEDS: MYCOPHENOLATE MOFETIL 250 MG CAPSULE PO SCH (21:43)
[2025-03-01] MEDS: HEPARIN NA (PORCINE) 5,000 UNITS/ML 1ML VIAL SQ SCH (21:43)
[2025-03-01] MEDS: LIDOCAINE PATCH REMOVAL MC SCH (21:43)
[2025-03-01] MEDS: INSULIN (NOVOLOG) ASPART 100 UNITS/ML 10ML VIAL SQ SCH (21:44)
[2025-03-01] MEDS: TACROLIMUS ANHYDROUS 1 MG CAPSULE PO SCH (21:44)
[2025-03-02] MEDS: EMPAGLIFLOZIN (JARDIANCE) 10 MG TABLET PO SCH (06:25)
[2025-03-02 07:20] LABS: ABSOLUTE IMMATURE GRANULOCYTES 0.05 x10^3/uL (0.0-0.031); BASOPHILS # 0.01 x10^3/uL (0.01-0.08); EOSINOPHIL % 0.6 % (0.7-5.8); EOSINOPHILS # 0.03 x10^3/uL (0.04-0.36); HEMATOCRIT 34.5 % (34.1-44.9); HEMOGLOBIN 10.4 g/dL (11.2-15.7); MCHC 30.1 g/dl (32.2-35.5); MEAN CELL VOLUME 81.9 fl (79.4-94.8); MEAN PLT VOLUME 11.1 fl (9.4-12.3); MONOCYTE # 0.42 x10^3/uL (0.24-0.86); MONOCYTE % 8.3 % (4.7-12.5); PLATELET COUNT 184 x10^3/uL (182-369); RDW 16.5 % (12.4-16.6)
[2025-03-02] MEDS: ACETAMINOPHEN 1000 MG/100 ML BAG IVPB PRN (07:31)
[2025-03-02 07:48] LABS: POTASSIUM 3.5 mmol/L (3.5-5.1)
[2025-03-02 08:00] LABS: BLOOD UREA NITROGEN 23.4 mg/dL (7-18); CALCIUM 8.4 mg/dL (8.5-10.1); MAGNESIUM 2.1 mg/dL (1.8-2.4)
[2025-03-02 08:01] LABS: ALBUMIN 3.4 g/dl (3.4-5.0)
[2025-03-02 08:03] LABS: CREATININE 1.6 mg/dL (0.55-1.3)
[2025-03-02 08:04] LABS: BILIRUBIN,TOTAL 0.7 mg/dL (0.2-1); PHOSPHOROUS 2.3 mg/dL (2.5-4.9)
[2025-03-02 08:05] LABS: TOT PROT 6.3 g/dl (6.4-8.2)
[2025-03-02] MEDS: TRIMETHOBENZAMIDE HCL 200MG/2ML INJ IM ONE (09:49)
[2025-03-02] MEDS: PANTOPRAZOLE SOD 40 MG SUSPENSION PACKET PO SCH (09:49)
[2025-03-02] MEDS: ASPIRIN 81 MG CHEWABLE TABLETS PO SCH (09:49)
[2025-03-02] MEDS: CALCITRIOL 0.25 MCG CAPSULE (FP) PO SCH (09:49)
[2025-03-02] MEDS: predniSONE 5 MG TABLET (UD) PO SCH (09:50)
[2025-03-02] MEDS ORDERED: hydrALAZINE HCL 50 MG TABLET (FP) PO SCH (10:00)
[2025-03-02] MEDS: CycloBENZAprine HCL 5 MG TABLET PO ONE (11:46)
[2025-03-02 12:57] VITALS: BP 143/63; PULSE 65; RESP 16; TEMP 98.4
== END 2025-03-02 12:51 | disposition home or self-care (01) ==
LOC: JER 08:47 → JERBED 13:59 → J4W 15:35
PROVIDERS: ADMIT Student in an Organized Health Care Education/Training Program; ATTEND Internal Medicine
PROC: 3E033NZ Introduction of Analgesics, Hypnotics, Sedatives into Peripheral Vein, Percutaneous Approach (ICD-10-PCS; principal; 2025-03-01)
PROC: 3E023GC Introduction of Other Therapeutic Substance into Muscle, Percutaneous Approach (ICD-10-PCS; 2025-03-01)
PROC: 3E0337Z Introduction of Electrolytic and Water Balance Substance into Peripheral Vein, Percutaneous Approach (ICD-10-PCS; 2025-03-01)
PROC: 3E023GC Introduction of Other Therapeutic Substance into Muscle, Percutaneous Approach (ICD-10-PCS; 2025-03-01)
DX: R07.9 Chest pain, unspecified (principal); I25.2 Old myocardial infarction; R01.1 Cardiac murmur, unspecified; I50.23 Acute on chronic systolic (congestive) heart failure; M25.512 Pain in left shoulder; J44.9 Chronic obstructive pulmonary disease, unspecified; I10 Essential (primary) hypertension; E11.9 Type 2 diabetes mellitus without complications; I11.9 Hypertensive heart disease without heart failure; Z94.0 Kidney transplant status; K21.9 Gastro-esophageal reflux disease without esophagitis; Z95.5 Presence of coronary angioplasty implant and graft
CPT/HCPCS: 0241U-QW; 36415; 71045-TC-FY; 74176-TC; 80053; 82550; 82553; 82962; 83690; 83735; 84100; 84484; 85025; 85027; 85610; 85730; 93005; 93010; 96361; 96372; 96374; 96375; 96376; 99285-25; G0378; J0131; J1644; J7517

== ENCOUNTER 2025-07-28 14:11 | Inpatient (IN) | payer OTHER, BC ==
[2025-07-28] MEDS ORDERED: ONDANSETRON 4 MG/2 ML VIAL ONE (15:53)
[2025-07-28] MEDS ORDERED: MORPHINE SULFATE 2 MG/ML SYRINGE ONE ×2 (15:53→20:03)
[2025-07-28] MEDS: ONDANSETRON 4 MG/2 ML VIAL IVPUSH ONE (15:54)
[2025-07-28] MEDS: morphine CARPU-JECT 2 MG/1 ML DISP.SYRIN IVPUSH ONE ×2 (15:55→20:05)
[2025-07-28 16:16] LABS: ABSOLUTE IMMATURE GRANULOCYTES 0.02 x10^3/uL (0.0-0.031); BASOPHILS # 0.00 x10^3/uL (0.01-0.08); EOSINOPHIL % 0.2 % (0.7-5.8); EOSINOPHILS # 0.01 x10^3/uL (0.04-0.36); MCHC 31.0 g/dl (32.2-35.5); MEAN CELL VOLUME 79.8 fl (79.4-94.8); MEAN PLT VOLUME 10.5 fl (9.4-12.3); MONOCYTE # 0.45 x10^3/uL (0.24-0.86); MONOCYTE % 7.4 % (4.7-12.5); RDW 16.6 % (12.4-16.6)
[2025-07-28 16:43] LABS: GLUCOSE,RANDOM 128 mg/dL (74-106); TOT PROT 7.9 g/dl (6.4-8.2)
[2025-07-28 16:45] LABS: CO2 24 mmol/L (21-32)
[2025-07-28 16:46] LABS: ALK PHOS 51 U/L (40-150)
[2025-07-28 16:49] LABS: SGOT/AST 31 U/L (5-34)
[2025-07-28 16:50] LABS: CREATININE 2.00 mg/dL (0.55-1.3); SGPT/ALT < 6 U/L (0-55)
[2025-07-28 17:14] LABS: HIV INTERPRETATION NEGATIVE (NEGATIVE)
[2025-07-28 17:24] LABS: HCV DIAGNOSTIC IN-HOUSE W/RFLX REACTIVE (NONREACTIVE)
[2025-07-28] MEDS: ACETAMINOPHEN 1000 MG/100 ML BAG IVPB ONE (18:48)
[2025-07-28] MEDS: SODIUM CHLORIDE 1,000 ML IV STA (18:58)
[2025-07-28] MEDS: LACTATED RINGERS SOLUTION 1,000 ML IV SCH (22:20)
[2025-07-28] MEDS ORDERED: ACETAMINOPHEN 1000 MG/100 ML BAG IVPB PRN (22:43)
[2025-07-28] MEDS ORDERED: TACROLIMUS 0.5 MG CAPSULE PO SCH (22:55)
[2025-07-28] MEDS: TACROLIMUS ANHYDROUS 1 MG CAPSULE PO SCH (23:15)
[2025-07-29] MEDS: ONDANSETRON 4 MG/2 ML VIAL IVPUSH PRN
[2025-07-29] MEDS: MYCOPHENOLATE MOFETIL 250 MG CAPSULE PO SCH
[2025-07-29] MEDS: ACETAMINOPHEN 1000 MG/100 ML BAG IVPB PRN (05:19)
[2025-07-29] MEDS: hydrALAZINE HCL 50 MG TABLET (FP) PO SCH (06:31)
[2025-07-29] MEDS: HEPARIN NA (PORCINE) 5,000 UNITS/ML 1ML VIAL SQ SCH (06:31)
[2025-07-29] MEDS: diphenhydrAMINE HCL 25 MG CAPSULE (FP) PO ONE ×2 (06:32→19:54)
[2025-07-29 07:42] LABS: ABSOLUTE IMMATURE GRANULOCYTES 0.02 x10^3/uL (0.0-0.031); BASOPHILS # 0.01 x10^3/uL (0.01-0.08); EOSINOPHIL % 0.4 % (0.7-5.8); EOSINOPHILS # 0.02 x10^3/uL (0.04-0.36); MCHC 30.5 g/dl (32.2-35.5); MEAN CELL VOLUME 81.2 fl (79.4-94.8); MEAN PLT VOLUME 10.5 fl (9.4-12.3); MONOCYTE # 0.36 x10^3/uL (0.24-0.86); MONOCYTE % 7.2 % (4.7-12.5); RDW 16.6 % (12.4-16.6)
[2025-07-29 08:55] LABS: GLUCOSE,RANDOM 73 mg/dL (74-106); TOT PROT 6.7 g/dl (6.4-8.2)
[2025-07-29 08:56] LABS: CO2 18 mmol/L (21-32)
[2025-07-29 08:58] LABS: ALK PHOS 46 U/L (40-150)
[2025-07-29 09:01] LABS: CREATININE 1.76 mg/dL (0.55-1.3); SGOT/AST 19 U/L (5-34); SGPT/ALT < 6 U/L (0-55)
[2025-07-29] MEDS: ASPIRIN 81 MG CHEWABLE TABLETS PO SCH (09:40)
[2025-07-29] MEDS: CARVEDILOL 25 MG TABLET (FP) PO SCH (09:40)
[2025-07-29] MEDS: PANTOPRAZOLE SOD 40 MG SUSPENSION PACKET PO SCH (09:41)
[2025-07-29] MEDS: ISOSORBIDE DINITRATE 20 MG TABLET PO SCH (09:42)
[2025-07-29] MEDS: TACROLIMUS ANHYDROUS 1 MG CAPSULE PO SCH (09:44)
[2025-07-29] MEDS: POLYETHYLENE GLYCOL (HEALTHYLAX) 3350 17 GM PACKET PO SCH (10:55)
[2025-07-29] MEDS: MAGNESIUM 2GM/50ML STERILE WATER IVPB IVPB ONE (10:55)
[2025-07-29] MEDS: PANTOPRAZOLE 40 MG TABLET PO SCH (10:55)
[2025-07-29] MEDS: cloNIDine-TTS 0.3 MG /24 HRS PATCH.TDWK TD SCH (13:38)
[2025-07-29] MEDS: LACTATED RINGERS SOLUTION 1,000 ML IV SCH (13:48)
[2025-07-29] MEDS: INSULIN ASPART SLIDING SCALE (NOVOLOG) 1 VIAL SQ SCH (17:15)
[2025-07-29 18:27] VITALS: RESP 18
[2025-07-29] MEDS: morphine CARPU-JECT 2 MG/1 ML DISP.SYRIN IVPUSH PRN (18:31)
[2025-07-29] MEDS: TACROLIMUS 0.5 MG CAPSULE PO SCH (21:08)
[2025-07-29] MEDS: ATORVASTATIN CA 40 MG TABLET (FP) PO SCH (21:09)
[2025-07-29] MEDS ORDERED: TACROLIMUS 0.5 MG CAPSULE PO SCH (22:00)
[2025-07-30] MEDS: predniSONE 5 MG TABLET (UD) PO SCH (00:28)
[2025-07-30 07:05] LABS: ABSOLUTE IMMATURE GRANULOCYTES 0.01 x10^3/uL (0.0-0.031); BASOPHILS # 0.01 x10^3/uL (0.01-0.08); EOSINOPHIL % 0.7 % (0.7-5.8); EOSINOPHILS # 0.03 x10^3/uL (0.04-0.36); MCHC 30.3 g/dl (32.2-35.5); MEAN CELL VOLUME 81.7 fl (79.4-94.8); MEAN PLT VOLUME 9.9 fl (9.4-12.3); MONOCYTE # 0.37 x10^3/uL (0.24-0.86); MONOCYTE % 8.3 % (4.7-12.5); RDW 16.4 % (12.4-16.6)
[2025-07-30 07:28] LABS: GLUCOSE,RANDOM 263 mg/dL (74-106)
[2025-07-30 07:29] LABS: TOT PROT 5.8 g/dl (6.4-8.2)
[2025-07-30 07:30] LABS: CO2 21 mmol/L (21-32)
[2025-07-30 07:31] LABS: ALK PHOS 40 U/L (40-150)
[2025-07-30 07:34] LABS: SGOT/AST 16 U/L (5-34)
[2025-07-30 08:34] LABS: CREATININE 1.74 mg/dL (0.55-1.3); SGPT/ALT < 6 U/L (0-55)
[2025-07-30] MEDS ORDERED: MAGNESIUM HYDROX 2400MG/30ML ORAL SUSPENSION 30 ML CUP PO PRN (08:42)
[2025-07-30] MEDS: INSULIN (NOVOLOG) ASPART 100 UNITS/ML 10ML VIAL SQ ONE (22:07)
[2025-07-31 07:06] LABS: MCHC 31.0 g/dl (32.2-35.5); MEAN CELL VOLUME 80.8 fl (79.4-94.8); MEAN PLT VOLUME 10.7 fl (9.4-12.3); RDW 16.0 % (12.4-16.6)
[2025-07-31 07:51] LABS: GLUCOSE,RANDOM 190 mg/dL (74-106); TOT PROT 5.7 g/dl (6.4-8.2)
[2025-07-31 07:52] LABS: CO2 24 mmol/L (21-32)
[2025-07-31 07:54] LABS: ALK PHOS 42 U/L (40-150)
[2025-07-31 07:56] LABS: SGOT/AST 16 U/L (5-34)
[2025-07-31 08:05] LABS: SGPT/ALT < 6 U/L (0-55)
[2025-07-31 08:06] LABS: CREATININE 1.71 mg/dL (0.55-1.3)
[2025-07-31] MEDS: NIFEdipine E.R. 30 MG TABLET PO SCH (10:30)
[2025-07-31 12:06] VITALS: BMI 18.5
[2025-07-31] MEDS: POLYETHYLENE GLYCOL (HEALTHYLAX) 3350 17 GM PACKET PO SCH (13:40)
[2025-07-31 14:56] VITALS: BP 138/71; PULSE 61; TEMP 98.6
[2025-07-31 18:06] LABS: TACROLIMUS FK506 BLOOD 5.0 ng/mL (5.0-20.0)
== END 2025-07-31 16:53 | disposition home or self-care (01) | DRG 392 ==
LOC: JER 14:11 → JERBED 20:47 → J4W 23:00
PROVIDERS: ADMIT Student in an Organized Health Care Education/Training Program; ATTEND Internal Medicine
DX: K59.00 Constipation, unspecified (principal); Z94.0 Kidney transplant status; I13.2 Hypertensive heart and chronic kidney disease with heart failure and with stage 5 chronic kidney disease, or end stage renal disease; I50.30 Unspecified diastolic (congestive) heart failure; E27.40 Unspecified adrenocortical insufficiency; R11.2 Nausea with vomiting, unspecified; D49.0 Neoplasm of unspecified behavior of digestive system; F41.9 Anxiety disorder, unspecified; I25.10 Atherosclerotic heart disease of native coronary artery without angina pectoris; E11.21 Type 2 diabetes mellitus with diabetic nephropathy; E11.319 Type 2 diabetes mellitus with unspecified diabetic retinopathy without macular edema; E11.40 Type 2 diabetes mellitus with diabetic neuropathy, unspecified; N18.9 Chronic kidney disease, unspecified
CPT/HCPCS: 36415; 74176-TC; 74181-TC; 80053; 80180; 80197; 82024; 82533; 82962; 83735; 84100; 85025; 85027; 86803; 86850; 86900; 86901; 87389; 87522; 87637-QW; 93005; 93010; 99285-25; J7517